=== PATIENT | female | born 1935 | race Two or more races ===

== ENCOUNTER 2016-04-22 12:31 | Emergency (ER) | payer MEDICARE, OTHER ==
[~2016-04-22] VITALS: Ht 152.4 cm; Wt 69.9 kg
[~2016-04-22 12:31] MED LIST: ACETAMIN-CODE12.5 ML PO; ASPIR 8181 MG ORAL; ATENOLOL50 MG ORAL; CALCIUM500 M3 PO; CELEBREX200 MG ORAL; COLACE100 MG ORAL; CREON DR 24,001 EACH PO; CYCLOBENZAPRINE10 MG ORAL; DONA1500 MG PO; FERROUS SULFAT325 MG ORAL; HEPARIN SO5000 UNIT2 SUBQ; MELOXICAM7.5 MG/5 M ORAL; NAPROXEN500 M1 ORAL; NKM; OMEPRAZOLE40 M1 ORAL; SINEMET 25-1001 EAC1 ORAL; TRAMADOL HCL50 MG ORAL; UNOBMED; VIT D; VITAMIN D250000 UNI1 ORAL
[2016-04-22 13:10] VITALS: BP 147/79
[2016-04-22] MEDS ORDERED: KENALOG 0.5% CR15 GM APPLIC ×2 (13:26→15:28)
[2016-04-22 13:30] VITALS: BP 147/79
--- NOTE | 2016-04-22 22:02 | Emergency Room Report ---
History of Present Illness General Chief Complaint: Skin Rash/Abscess Source: Patient, Family Member Present Illness HPI The patient is an 80-year-old female presenting with right lower leg rash which began one week prior. The patient's son states that the patient was left with long pants and the heat and developed this rash. The patient describes this as itchy and denies pain. The patient denies any known allergens that may have caused this. The patient has not tried any medications for this. The patient denies other symptoms including nausea, vomiting, fever, chills, chest pain, shortness of breath Allergies: Coded Allergies: PENICILLIN V (Verified Allergy, Intermediate, 06/03/13) ASPIRIN (Unverified Allergy, Unknown, 07/21/14) Patient History Past Medical History: see triage record Pertinent Family History: none Last Menstrual Period: na Reviewed Nursing Documentation: PMH: Agreed, PSxH: Agreed Nursing Documentation-PMH Past Medical History: No History, Except For Hx Cardiac Problems: Yes Hx Hypertension: Yes Hx Asthma: Yes Hx Cancer: No Hx Gastrointestinal Problems: Yes - GERD Hx Neurological Problems: No Review of Systems All Other Systems: negative except mentioned in HPI Physical Exam Vital Signs Date Time Temp Pulse Resp B/P Pulse Ox O2 Delivery O2 Flow Rate FiO2 04/22/16 13:03 97.3 80 18 147/79 99 Room Air Sp02 EP Interpretation: reviewed, normal General Appearance: no apparent distress, alert, GCS 15, non-toxic Head: normocephalic, atraumatic Eyes: bilateral eye PERRL, bilateral eye normal inspection ENT: hearing grossly normal, normal pharynx, no angioedema, normal voice Musculoskeletal: back normal, gait/station normal, normal range of motion, non- tender, no calf tenderness Neurologic: alert, oriented x3, responsive, motor strength/tone normal, sensory intact, speech normal Psychiatric: judgement/insight normal, memory normal, mood/affect normal, no suicidal/homicidal ideation Skin: rash - scattered erythematous macular rash of R lower leg. Non tender. Warm to touch. No edema. Crosses midline. Lymphatic: no adenopathy Medical Decision Making PA Attestation Dr. Garcia is my supervising physician. Patient management was discussed with my supervising physician Diagnostic Impression: Primary Impression: Contact dermatitis ER Course The patient is an 80-year-old female presenting with right lower leg rash which began one week prior. Ddx considered include but not limited to insect bite, contact dermatitis, eczema, cellulitis PE: vitals WNL. Afebrile. NAD scattered erythematous macular rash of R lower leg. Non tender. Warm to touch. No edema. Crosses midline. The patient will be discharged home with a prescription for triamcinolone and will follow up with PMD. ER precautions are given Last Vital Signs Date Time Temp Pulse Resp B/P Pulse Ox O2 Delivery O2 Flow Rate FiO2 04/22/16 13:30 97.3 18 147/79 99 Room Air 04/22/16 13:10 80 Status: improved Disposition: HOME, SELF-CARE Condition: Improved Scripts Triamcinolone Acet (Triamcinolone Acetonide) 15 Gm Cream..g. 15 GM APPLIC TID, #15 GM Prov: PADMINI LUTZ 04/22/16 Referrals: NON PHYSICIAN (PCP) Patient Instructions: Rash Additional Instructions: I discussed my findings with the patient. All questions and concerns have been answered. Treatment and medication compliance have been addressed. I advised the patient that they need to follow up with PMD in 3-5 days. Return to ED if symptoms worsen, new symptoms arise, or if needed for any reason. Patient verbalized understanding of discharge instructions. PADMINI LUTZ Apr 22, 2016 22:02
== END 2016-04-22 13:30 | disposition home or self-care (01) ==
LOC: EMR 13:20
DX: L25.9 Unspecified contact dermatitis, unspecified cause (principal); I10 Essential (primary) hypertension; J45.909 Unspecified asthma, uncomplicated; K21.9 Gastro-esophageal reflux disease without esophagitis
CPT/HCPCS: 99283